=== PATIENT | male | born 1980 | race African-American/Black ===

== ENCOUNTER 2016-12-10 22:22 | Emergency (ER) | payer OTHER ==
[2016-12-11] MEDS ORDERED: PENICILLIN V POTASSIUM 500 MG TABLET PO ONE (01:10)
--- NOTE | 2016-12-11 01:13 | ER Document Report ---
ED General - General Chief Complaint: Toothache Stated Complaint: TOOTHACHE Time Seen by Provider: 12/11/16 00:47 Notes: Patient is a 35-year-old male who presents with complaints of tooth pain. Pain is mostly in the right lower molar. No facial swelling. No difficulty breathing or swallowing. No fevers. He has not yet seen a dentist. TRAVEL OUTSIDE OF THE [place] IN LAST 30 DAYS: No - Related Data Allergies/Adverse Reactions: No Known Allergies Allergy (Verified 12/10/16 23:01) Past Medical History - Social History Smoking Status: Never Smoker Frequency of alcohol use: None Drug Abuse: None Family History: Reviewed & Not Pertinent Patient has suicidal ideation: No Patient has homicidal ideation: No Pulmonary Medical History: Reports: Hx Asthma Renal/ Medical History: Denies: Hx Peritoneal Dialysis - Immunizations Hx Diphtheria, Pertussis, Tetanus Vaccination: Yes - unknown Review of Systems - Review of Systems Notes: My Normal Review Basic REVIEW OF SYSTEMS: CONSTITUTIONAL : Denies fever, chills, or sweats. Denies recent illness. EENT: Dental pain RESPIRATORY: Denies cough, cold, or chest congestion. Denies shortness of breath, difficulty breathing, or wheezing. GASTROINTESTINAL: Denies abdominal pain. Denies nausea, vomiting, or diarrhea. Denies constipation. Last BM: MUSCULOSKELETAL: Denies neck or back pain or joint pain or swelling. SKIN: Denies rash or skin lesions. NEUROLOGICAL: Denies altered mental status or loss of consciousness. Denies headache. Denies weakness or paralysis or loss of use of either side. Denies problems with gait or speech. Denies sensory or motor loss. ALL OTHER SYSTEMS REVIEWED AND NEGATIVE. Physical Exam - Vital signs Vitals: Temp Pulse Resp BP Pulse Ox 99.0 F 62 18 137/84 H 97 12/10/16 23:02 12/10/16 23:02 12/10/16 23:02 12/10/16 23:02 12/10/16 23:02 - Notes Notes: General Appearance: Well nourished, alert, cooperative, no acute distress, ALT moderate obvious discomfort. Vitals: reviewed, See vital signs table. Head: no swelling or tenderness to the head Eyes: PERRL, EOMI, Conjuctiva clear Mouth: Fractured right lower molar. Gingival inflammation or swelling. No facial swelling. No neck swelling. Throat: No tonsillar inflammation, No airway obstruction, No lymphadenopathy Neck: Supple, no neck tenderness, Neuro: speech clear, oriented x 3, normal affect, responds appropriately to questions. Course - Re-evaluation Re-evalutation: 12/11/16 06:34 Patient will be discharged home. I will place him on penicillin. I encouraged him to return to ER immediately if he has any difficulty breathing, difficulty swallowing, or swelling in the face or swelling below the jaw. Patient agrees with plan will be discharged home. I informed to call dentist for in the next 2 -3 days. Dictation of this chart was performed using voice recognition software; therefore, there may be some unintended grammatical errors. 12/11/16 06:35 - Vital Signs Vital signs: Temp Pulse Resp BP Pulse Ox 98.0 F 58 L 18 142/97 H 97 12/11/16 01:51 12/11/16 01:51 12/11/16 01:51 12/11/16 01:51 12/11/16 01:51 Discharge - Discharge Clinical Impression: Toothache Condition: Good Disposition: HOME, SELF-CARE Instructions: Oral Narcotic Medication ([facility]) Additional Instructions: Please take the antibiotic as precribed. please call a dentist in the morning to try to make a follow up appointment this week. Please return to the ER immediately if you develop facial swelling, any swelling below the jaw, fevers, difficulty breathing, or if you feel unwell. Do not drive when taking the Ultram as it may make you sleepy. Prescriptions: Tramadol HCl [Ultram 50 mg Tablet] 50 mg PO Q6HP PRN #15 tablet PRN Reason: Penicillin V Potassium [Penicillin Vk 500 mg Tablet] 500 mg PO BID #14 tablet Forms: Return to Work
[2016-12-11] MEDS ORDERED: TRAMADOL HCL 50 MG TABLET PO ONE (01:36)
[2016-12-11 01:54] VITALS: BP 142/97
== END 2016-12-11 01:54 | disposition home or self-care (01) ==
LOC: ER 22:22
DX: K08.89 Other specified disorders of teeth and supporting structures (principal)
CPT/HCPCS: 99282